=== PATIENT | male | born 1950 | race Caucasian/White ===

== ENCOUNTER 2020-04-20 10:07 | Outpatient (CLI) | payer MEDICARE, SELFPAY ==
[2020-04-22 00:15] LABS: COVID-19 RT-PCR Result NEGATIVE (Negative)
== END 2020-04-20 10:27 ==
PROVIDERS: PCP Nurse Practitioner Family; Visit Provider Family Medicine
DX: Z20.828 Contact with and (suspected) exposure to other viral communicable diseases (principal)
CPT/HCPCS: U0003